=== PATIENT | female | born 1980 | race Caucasian/White ===

== ENCOUNTER 2022-10-24 06:01 | Emergency (ER) | payer SELFPAY ==
[~2022-10-24] VITALS: Ht 162.6 cm; Wt 65.8 kg
[2022-10-24] MEDS ORDERED: MORPHINE SULFATE 2 MG/1 ML DISP.SYRIN IV ONE (06:45)
[2022-10-24] MEDS ORDERED: IV NORMAL SALINE 1000 ML BAG IV ONE (06:45)
[2022-10-24] MEDS ORDERED: ONDANSETRON 4 MG/2 ML VIAL IV ONE (06:45)
[2022-10-24] MEDS ORDERED: ONDANSETRON 4 MG/2 ML VIAL ONE (06:48)
[2022-10-24] MEDS ORDERED: MORPHINE SULFATE 4 MG/1 ML DISP.SYRIN ONE (06:48)
--- NOTE | 2022-10-24 07:30 | NUR ---
Patient ran out of ER with IV in left forearm. I am Attempting to call [employer] at this time.
[2022-10-24 07:31] LABS: HEMATOCRIT 40.6 % (31.2-41.9); MEAN CORPUSCULAR HEMOGLOBIN 27.8 uug (24.7-32.8); MEAN CORPUSCULAR VOLUME 84.6 fL (75.5-95.3); PLATELET COUNT (AUTO) 322 K/uL (179-408)
--- NOTE | 2022-10-24 07:42 | NUR ---
Called [employer] to inform them that patient ran out of the ER wiht IV in left forearm. Spoke to packing line operator #[id number], stated that they do not respond to these types of calls anymore. Dr. Tavares notified,
[2022-10-24 07:58] LABS: CARBON DIOXIDE 27 mmol/L (21-32); CHLORIDE 107 mmol/L (98-107); CREATININE 0.7 mg/dL (0.6-1.3); GLUCOSE 109 mg/dL (74-106); POTASSIUM 3.9 mmol/L (3.5-5.1); UREA NITROGEN, BLOOD 15 mg/dL (7-18)
[2022-10-24 08:03] LABS: ALANINE AMINOTRANSFERASE 22 U/L (14-59); ALKALINE PHOSPHATASE 95 U/L (50-136); ASPARTATE AMINOTRANSFERASE 11 U/L (15-37); BILIRUBIN,DIRECT < 0.1 mg/dL (0.0-0.2); BILIRUBIN,TOTAL 0.2 mg/dL (0.2-1.0); LIPASE 124 U/L (73-393); TOTAL PROTEIN, SERUM 7.6 g/dL (6.4-8.2)
== END 2022-10-24 07:45 | disposition left against medical advice (07) ==
LOC: ER 06:01
DX: R10.9 Unspecified abdominal pain (principal); Z76.5 Malingerer [conscious simulation]; Z88.8 Allergy status to other drugs, medicaments and biological substances
CPT/HCPCS: 99284; 96374; 96375; 80076; 80048; 83690; 85025; 36415; J2405; J2270; J7040; A4663